=== PATIENT | male | born 1975 | race Asian ===

== ENCOUNTER 2018-05-26 08:40 | Emergency (ER) | payer OTHER ==
[~2018-05-26] VITALS: Ht 167.6 cm; Wt 50.0 kg
[2018-05-26] MEDS ORDERED: KETOROLAC 60MG/2ML VIAL IM STA (08:53)
[2018-05-26 09:38] LABS: CLARITY URINE CLOUDY (CLEAR); COLOR URINE YELLOW (YELLOW); KETONES URINE NEGATIVE (NEGATIVE); LEUKOCYTE ESTERASE URINE TRACE (NEGATIVE); NITRITE URINE NEGATIVE (NEGATIVE); OCCULT BLOOD URINE 3+ (NEGATIVE); PH URINE 5.5 (4.5-8.0); PROTEIN URINE 1+ (NEGATIVE); SPECIFIC GRAVITY URINE 1.024 (1.005-1.030)
[2018-05-26 11:04] VITALS: BP 118/74
== END 2018-05-26 11:08 | disposition home or self-care (01) ==
LOC: ER 09:26
DX: N13.2 Hydronephrosis with renal and ureteral calculous obstruction (principal); R03.0 Elevated blood-pressure reading, without diagnosis of hypertension; F17.200 Nicotine dependence, unspecified, uncomplicated
CPT/HCPCS: 74176; 81003; 96372; 99285; J1885